=== PATIENT | female | born 1990 | race Two or more races ===

== ENCOUNTER 2017-03-10 15:40 | Emergency (ER) | payer OTHER ==
[2017-03-10 16:08] VITALS: BP 118/78; PULSE 81; TEMP 98.2; BMI 21.6
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
[2017-03-10] MEDS ORDERED: IBUPROFEN 600 MG TABLET (FP) PO ONE (20:48)
== END 2017-03-10 20:43 | disposition home or self-care (01) ==
LOC: JER 15:40
DX: S06.0X0A Concussion without loss of consciousness, initial encounter (principal); S00.83XA Contusion of other part of head, initial encounter; Y04.2XXA Assault by strike against or bumped into by another person, initial encounter; Y93.89 Activity, other specified; Y92.89 Other specified places as the place of occurrence of the external cause; Y99.8 Other external cause status; Y07.04 Female partner, perpetrator of maltreatment and neglect; F17.210 Nicotine dependence, cigarettes, uncomplicated
CPT/HCPCS: 70450-TC; 84703; 99281-25

== ENCOUNTER 2019-01-05 02:18 | Emergency (ER) | payer OTHER ==
[2019-01-05 03:06] VITALS: TEMP 97.6; BMI 26.2
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
[2019-01-05 04:47] LABS: BASO % 1.2 % (0-2.0); EOS % 1.7 % (0-4.5); HEMATOCRIT 40.9 % (32.4-45.2); HEMOGLOBIN 13.6 GM/dL (10.7-15.3); LYMPH % 20.7 % (8-40); MCH 29.7 pg (25.7-33.7); MCHC 33.2 g/dl (32.0-36.0); MEAN CELL VOLUME 89.4 fl (80-96); MEAN PLT VOLUME 8.2 fl (7.5-11.1); MONO % 4.5 % (3.8-10.2); NEUT % 71.9 % (42.8-82.8); PLATELET COUNT 263 K/MM3 (134-434); RBC 4.58 M/mm3 (3.60-5.2); RDW 13.4 % (11.6-15.6); WHITE BLOOD COUNT 9.5 K/mm3 (4.0-10.0)
[2019-01-05 04:51] LABS: PH,URINE 6.5 (5.0-8.0); URINE APPEARANCE CLEAR; URINE BILIRUBIN NEGATIVE (NEGATIVE); URINE COLOR YELLOW; URINE GLUCOSE (UA) NEGATIVE (NEGATIVE); URINE KETONE NEGATIVE (NEGATIVE); URINE LEUK ESTERASE NEGATIVE (NEGATIVE); URINE NITRITE NEGATIVE (NEGATIVE); URINE PROTEIN NEGATIVE (NEGATIVE); URINE UROBILINOGEN 0.2 mg/dL (0.2-1.0)
[2019-01-05 05:02] LABS: COCAINE, UR NEGATIVE ng/ml (CUTOFF=300); METHADONE, UR NEGATIVE ng/ml (CUTOFF=300); OPIATES, URI NEGATIVE ng/ml (CUTOFF=300); PHENCYCLIDINE,URINE NEGATIVE ng/ml (CUTOFF=25); URINE BARBITURATES NEGATIVE ng/ml (CUTOFF=200); URINE BENZODIAZEPINES NEGATIVE ng/ml (CUTOFF=200)
[2019-01-05] MEDS ORDERED: SODIUM CHLORIDE 0.9% 500 ML INFUS.BAG IV ONE (05:12)
[2019-01-05 05:19] LABS: URINE AMPHETAMINES POSITIVE ng/ml (CUTOFF=500)
[2019-01-05 05:33] LABS: BILIRUBIN,TOTAL 0.5 mg/dL (0.2-1); BLOOD UREA NITROGEN 13.9 mg/dL (7-18); CALCIUM 9.4 mg/dL (8.5-10.1); CREATININE 1.1 mg/dL (0.55-1.3); POTASSIUM 5.3 mmol/L (3.5-5.1); TOT PROT 7.6 g/dl (6.4-8.2)
[2019-01-05 06:39] VITALS: BP 135/93; PULSE 96
--- NOTE | 2019-01-06 07:08 | EKG ---
Test Reason : Blood Pressure : / mmHG Vent. Rate : 110 BPM Atrial Rate : 110 BPM P-R Int : 140 ms QRS Dur : 064 ms QT Int : 330 ms P-R-T Axes : 033 009 035 degrees QTc Int : 446 ms SINUS TACHYCARDIA LOW VOLTAGE QRS BORDERLINE ECG NO PREVIOUS ECGS AVAILABLE Confirmed by SANDY STREET MD ([id number]) on 01/06/2019 7:08:20 AM Referred By: Confirmed By:SANDY STREET MD
== END 2019-01-05 06:25 | disposition home or self-care (01) ==
LOC: JER 02:18
DX: R00.2 Palpitations (principal); F90.9 Attention-deficit hyperactivity disorder, unspecified type; F17.210 Nicotine dependence, cigarettes, uncomplicated
CPT/HCPCS: 36415; 80053; 80307; 81003; 84443; 84484; 84703; 85025; 87086; 93005; 93010; 99283-25